=== PATIENT | female | born 1960 | race Two or more races ===

== ENCOUNTER 2017-07-07 09:23 | Day surgery (SDC) | payer OTHER ==
[2017-07-07] VITALS (10 sets, daily range): BP systolic 110–129; BP diastolic 68–77
[~2017-07-07] VITALS: Ht 152.4 cm; Wt 63.0 kg
--- NOTE | 2017-07-07 07:06 | Pre-Procedure Note/Attestation ---
Pre-Procedure Note/Attestation Complete Prior to Procedure Planned Procedure: right Procedure Narrative: rt shoulder scope, rtc repair Indications for Procedure Pre-Operative Diagnosis: rt shoulder rtc tear Attestation I attest that I discussed the nature of the procedure; its benefits; risks and complications; and alternatives (and the risks and benefits of such alternatives ), prior to the procedure, with the patient (or the patient's legal associate financial representative). I attest that, if there was a reasonable possibility of needing a blood transfusion, the patient (or the patient's legal associate financial representative) was given the [facility] standardized written summary, pursuant to the [place] Blood Safety Act ([place] Health and Safety Code # 1645, as amended). I attest that I re-evaluated the patient just prior to the surgery and that there has been no change in the patient's H&P, except as documented below: none DUSTY RICK Jul 07, 2017 07:05
[~2017-07-07 09:23] MED LIST: ceFAZolin 1 GM premix IV ONE; ceFAZolin sod 1gm in NS 55ml IVPB ONE; celeBREX 200mg Cap **SURGERY PATIENTS ONLY ORAL ONE; oxyCONTIN 20mg tab ORAL ONE
[2017-07-07] MEDS ORDERED: Neostigmine 1mg/ml 10ml Inj ONE (09:24)
[2017-07-07] MEDS ORDERED: Midazolam 2mg/2ml Inj ONE (09:24)
[2017-07-07] MEDS ORDERED: Succinylcholine 20mg/ml 10ml vial ONE (09:24)
[2017-07-07] MEDS ORDERED: fentaNYL 100 mcg/2 mL IV ONE (09:24)
[2017-07-07] MEDS ORDERED: LR 1000ml ONE (09:24)
[2017-07-07] MEDS ORDERED: Ketorolac 30mg Inj ONE (09:24)
[2017-07-07] MEDS ORDERED: Zemuron 50mg/5ml Inj IV ONE (09:24)
[2017-07-07] MEDS ORDERED: Glycopyrrolate 0.2mg/ml 1ml Vial ONE (09:24)
[2017-07-07] MEDS ORDERED: Propofol 200mg/20ml IV ONE (09:24)
[2017-07-07] MEDS ORDERED: FLUOXETINE HCL40 MG ORAL (10:04)
[2017-07-07] MEDS ORDERED: GABAPENTIN300 MG ORAL (10:04)
[2017-07-07] MEDS ORDERED: LIPITOR10 MG ORAL (10:04)
[2017-07-07] MEDS ORDERED: LORAZEPAM0.5 MG ORAL (10:04)
[2017-07-07] MEDS ORDERED: Ropivacaine 5mg/ml Vial 30ml INJ ONE (10:09)
[2017-07-07] MEDS ORDERED: celeBREX 200mg Cap **SURGERY PATIENTS ONLY ORAL ONE (10:30)
[2017-07-07] MEDS ORDERED: Tylenol #3 tab (300mg/30mg) ORAL PRN (11:30)
[2017-07-07] MEDS ORDERED: HYDROmorphone 1mg/ml Carpuject SUBQ PRN (11:30)
[2017-07-07] MEDS ORDERED: Norco 5mg/325mg tab ORAL PRN (11:30)
[2017-07-07] MEDS ORDERED: NS Irrig 4000ml IRRIG ONE (12:20)
[2017-07-07] MEDS ORDERED: LR 1000ml 1,000 ML IVLG SCH (13:13)
--- NOTE | 2017-07-07 13:13 | Anethesia Preoperative Eval ---
Anesthesia Pre-op PMH/ROS General Date of Evaluation: Jul 07, 2017 Time of Evaluation: 11:56 Anesthesiologist: Jarret ASA Score: ASA 2 Mallampati Score Class I : Soft palate, uvula, fauces, pillars visible Class II: Soft palate, uvula, fauces visible Class III: Soft palate, base of uvula visible Class IV: Only hard plate visible Mallampati Classification: Class II Surgeon: Jorge Luis Diagnosis: R shoulder pain Surgical Procedure: R shoulder scope Anesthesia History: none Family History: no anesthesia problems Allergies: Coded Allergies: No Known Allergies (Unverified , 07/02/17) Medications: see eMAR Past Medical History Cardiovascular: Denies: HTN, CAD, [place], valve dz, arrhythmia, other Pulmonary: Denies: asthma, COPD, PARVEZ, other Gastrointestinal/Genitourinary: Reports: GERD - mild, Denies: CRI, ESRD, other Neurologic/Psychiatric: Reports: depression/anxiety, Denies: dementia, CVA, TIA, other Endocrine: Denies: DM, hypothyroidism, steroids, other HEENT: Denies: cataract (L), cataract (R), glaucoma, DIOMEDE (L), DIOMEDE (R), other Hematology/Immune: Denies: anemia, DVT, bleeding disorder, other Musculoskeletal/Integumentary: Denies: OA, RA, DJD, DDD, edema, other PMH Narrative: as above PSxH Narrative: R shoulder carpal tunnel, C- section x 4 Anesthesia Pre-op Phys. Exam Physician Exam Last Vital Signs Date Time Temp Pulse Resp B/P (MAP) Pulse Ox O2 Delivery O2 Flow Rate FiO2 07/07/17 10:19 97.8 67 20 111/68 99 Room Air 97.8 Constitutional: NAD Neurologic: CN 2-12 intact Cardiovascular: RRR, no M/R/G Respiratory: CTA Gastrointestinal: S/NT/ND Airway Exam Mallampati Score: Class II MO: full Neck: flexible ROM: full Teeth: intact Dentures: no upper, no lower Anesthesia Pre-op A/P Labs see chart Studies Pre-op Studies: EKG - NSR Risk Assessment & Plan Assessment: ASA 2 Plan: GA with ETT Status Change Before Surgery: No Pre-Antibiotics Drug: Ancef 1gr. Given Within 1 Hr of Incision: Yes Time Given: 12:43 ARTEMIO GUILLERMO M.D. Jul 07, 2017 13:12
[2017-07-07] MEDS ORDERED: DiphenhydrAMINE 50mg/ml Inj IVP PRN (13:15)
[2017-07-07] MEDS ORDERED: Hydromorphone 0.5mg/0.5ml inj IVP PRN (13:15)
[2017-07-07] MEDS ORDERED: Ketorolac 30mg Inj IV PRN (13:15)
[2017-07-07] MEDS ORDERED: Midazolam 2mg/2ml Inj IVP PRN (13:15)
--- NOTE | 2017-07-07 14:03 | Brief Operative Note ---
Immediate Post Operative Note Operative Note Chief Complaint: rt shoulder pain Pre-op Diagnosis: rt shoulder rtc tear Procedure: rt shoulder scope, rtc repair Post-op Diagnosis: same as pre-op Findings: consistent w/pre-op dx studies Surgeon: md rodrigo Electrolytic De Scaler: bayron saldivar Anesthesiologist: md catie Anesthesia: general, regional Specimen: none Complications: none Condition: stable Fluids: ns Estimated Blood Loss: minimal Drains: none Implant(s) used?: Yes - biomet ALEXIA SALDIVAR Jul 07, 2017 14:02
--- NOTE | 2017-07-07 14:23 | 48 Hour Post Anesthesia Eval ---
Post Anesthesia Evaluation Procedure: R shoulder arthroscopy RC repair Date of Evaluation: Jul 07, 2017 Time of Evaluation: 14:22 Blood Pressure Systolic: 116 0: 72 Pulse Rate: 73 Respiratory Rate: 20 Temperature (Fahrenheit): 97.6 O2 Sat by Pulse Oximetry: 99 Airway: patent Nausea: No Vomiting: No Pain Intensity: 2 Hydration Status: adequate Cardiopulmonary Status: stable Mental Status/LOC: patient returned to baseline Follow-up Care/Observations: N/A Post-Anesthesia Complications: none Follow-up care needed: ready to discharge ARTEMIO GUILLERMO M.D. Jul 07, 2017 14:23
--- NOTE | 2017-07-07 14:25 | Immediate Post-Op Evaluation ---
Immediate Post-Op Evalulation Immediate Post-Op Evalulation Procedure: R shoulder arthroscopy RC repair Date of Evaluation: Jul 07, 2017 Time of Evaluation: 14:24 IV Fluids: 1200 Blood Products: none Estimated Blood Loss: 50 Urinary Output: none Blood Pressure Systolic: 116 Blood Pressure Diastolic: 72 Pulse Rate: 76 Respiratory Rate: 20 O2 Sat by Pulse Oximetry: 99 Temperature (Fahrenheit): 97.6 Pain Score (1-10): 2 Nausea: No Vomiting: No Complications none Patient Status: awake, patent, extubated, none Hydration Status: adequate ARTEMIO GUILLERMO M.D. Jul 07, 2017 14:25
[2017-07-07] MEDS ORDERED: D5 1/2NS 1,000 ML IV SCH (18:00)
--- NOTE | 2017-07-07 20:46 | Operative Note - Dictated ---
DATE OF OPERATION: 07/07/2017 PREOPERATIVE DIAGNOSIS: Right shoulder recurrent rotator cuff tear. POSTOPERATIVE DIAGNOSES: 1. Right shoulder recurrent non-retracted rotator cuff tear measuring 1 cm. 2. Right shoulder subacromial impingement. PROCEDURES: 1. Right shoulder arthroscopy and extensive intra-articular shaving. 2. Right shoulder subacromial bursoscopy, bursectomy, subacromial revision, subacromial decompression. 3. Right shoulder revision rotator cuff repair involving anterior leading edge of the rotator cuff with single Biomet 2.9 mm JuggerKnot anchor. 4. Right shoulder revision distal clavicle resection (mini-Zakiya procedure). SURGEON: Wesley Kang M.D. SCHEDULE MAKER: Emilia Young PA-C. Environmental Professional was present during the actual operative portion of the case and was important and essential part of the operation. During the operation, the fundraising assistant held and operated the arthroscopic camera for visualization, assisted by manipulating the arm to help with visualization, and helped with essential parts of the repair process as necessary such as operatg surgical instruments under surgeon supervision, suture management, and wound closures. ANESTHESIOLOGIST: Dr. Meade. ANESTHESIA: LMA anesthesia combined with interscalene block for postoperative pain management. ESTIMATED BLOOD LOSS: Less than 20 mL. COMPLICATIONS: None. SURGICAL INDICATION: The patient is a 56-year-old female who sustained the above injury to her shoulder. The patient was treated non-operative initially, but this did not alleviate the patients symptoms. Therefore, after discussing all non-surgical and surgical options, and discussing all foreseeable risk and benefits of surgery, the patient opted for surgical treatment as described above. PATIENT POSITIONING: The patient was brought to the operating room table and was placed on the operating room table. All pressure points were well padded. General anesthesia was induced and the patient was then placed in the lateral decubitus position. All pressure points were well padded again and an axillary roll was placed. The patient's shoulder was then prepped and draped in the usual sterile fashion. Time-out was performed and the appropriate preoperative antibiotic was given by the anesthesiologist. EXAMINATION OF SHOULDER UNDER ANESTHESIA: The shoulder was examined under anesthesia with all muscles well relaxed. The shoulder was forward flexed, abducted, and was placed through full range of external and internal rotation. The anterior, posterior, and inferior stability of the shoulder was checked. The exam revealed no evidence of adhesive capsulitis and no evidence of instability. PORTAL PLACEMENT: The posterior portal was established 2 cm inferior and 1 cm medial to the edge of the posterior acromion. A 1-cm skin incision was made using an #11 blade and using the blunt obturator, the cannula was gently placed through the capsule. The mid-glenoid portal was established just lateral to the coracoid process under direct visualization. Direction of the cannula was first established using a spinal needle, and subsequently, the cannula was placed through the capsule with a blunt obturator. DIAGNOSTIC ARTHROSCOPY: The biceps tendon was probed and pulled through the joint for visualization. It appeared normal. The biceps anchor was palpated with a probe and was visualized. There was some degenerative superior labral tearing, otherwise within normal limits. The posterior labrum and axillary recess was visualized. This was normal and there was no evidence of loose cartilage or fragments in this area. Glenoid articular surface was visualized and it appeared normal. The articular surface of the rotator cuff was visualized and probed next. There was articular-sided rotator cuff tear that measured approximately 1 cm. This was marked and viewed from the subacromial space and showed to be a full-thickness tear. The humeral head articular surface was then visualized. There was no evidence of articular cartilage damage. Next the anterior labrum, middle glenohumeral ligament, subscapularis tendon, and the anteroinferior glenohumeral ligament were evaluated. These structures were completely normal. At this point, the scope was moved to the mid-glenoid portal and the posterior structures including the posterior labrum, posterior capsule, and posterior cuff were visualized. These structures were completely normal. The subscapularis recess was devoid of any loose bodies and the anterior capsule was well attached to the humeral neck. The middle and anteroinferior glenohumeral ligament was visualized. These structures were completely normal. OPERATIVE DEBRIDEMENTS AND REPAIR: Care was given to all partial-thickness tears and frayed structures in the shoulder joint. The frayed rotator cuff and labrum was debrided using a shaver initially through the anterior portal and subsequently through the posterior portal to complete the debridement. This allowed for smooth debridement of all affected structures and all loose fragments were removed. DIAGNOSTIC BURSOSCOPY AND SUBACROMIAL DECOMPRESSION: The subacromial bursa was entered from the posterior portal. The anterior portal was established under the CA ligament using a switching stick. Subacromial arthroscopy was initiated. There was extensive bursitis and thickened and inflamed bursa tissue present. The CA ligament appeared to be scuffed and frayed. The shaver was placed through the anterior cannula and debridement of the hypertrophic bursa tissue was accomplished. Once visualization was adequate, a lateral portal was established using a blunt trochar in the mid portion of the acromion bone in the anterior-posterior direction and approximately 2 cm lateral to the lateral edge of the acromion. Using combination of shaver and electrocautery, the CA ligament was released from the undersurface of the acromion and a complete bursectomy was accomplished. At this point, a subacromial decompression was performed using a jazlyn initially taking off 5-8 mm of the anterolateral edge of the acromion from the lateral portal and viewing from the posterior portal. Then the lateral border of the undersurface of the acromion was decompressed to the same depth as the anterolateral edge. A posterior trough was then created in the acromion in line with the posterior edge of the clavicle. At this point, the scope was placed in the lateral portal and the subacromial decompression was performed from the posterior portal decompressing the undersurface of the acromion to depth of 5-8 mm. The decompression was performed anterior to the previously marked trough all the way medially to the level of the AC joint. At all times, care was given not to take off too much bone in order to avoid risk of fracture of the acromion. An excellent subacromial decompression was performed in this fashion. At this point, the bursal side of the rotator cuff was examined. All the bursa over the rotator cuff was removed and the rotator cuff was examined with a probe. The arm was placed into external rotation, neutral, and then internal rotation and a nondisplaced rotator cuff tear that was previously repaired. The scope was then placed in the posterior portal and the subacromial decompression was rechecked to assure there was no area of bone spur that would be still impinging onto the rotator cuff. EVALUATION OF DISTAL CLAVICLE AND DISTAL CLAVICLE RESECTION: Care was given to the distal end of the clavicle. Using electrocautery and maciej, the distal end of the bursa and soft tissue around the distal end of the clavicle was debrided and cleaned. Care was given not to inflict excessive trauma to the ligaments of the AC joint. The distal end of the clavicle appeared to have an inferior osteophyte extending down well bellow the level of the acromion at the level of the AC joint. This appeared to be impinging onto the supraspinatus muscle belly and the musculotendinous junction of the rotator cuff. A mini-Zakiya procedure was performed by using a jazlyn to resect the inferior 30% of the distal end of the clavicle. This decompression allowed space for the inferior structures to slide without impingement. This coplaned the inferior edge of the distal clavicle with the inferior edge of the acromion. The scope was placed in the lateral portal and the rotator cuff was visualized. The rotator cuff revealed a non-retracted 1-cm tear at the site of the previous repair. The rotator cuff footprint adjacent to the articular cartilage of the humeral head was identified. This area was debrided initially using maciej and subsequently using jzalyn to provide adequate bleeding bony surface to accept the rotator cuff tendon. Attention was given to repair the rotator cuff with as little tension as possible. At this point, an arthroscopic punch was used to create holes for suture anchor placement at the medial edge of the footprint through separate stab wound incisions and an arthroscopic tap was used to prepare the holes. One Biomet 2.9-mm JuggerKnot anchor double-loaded with two #2 non-absorbable strong sutures was placed in previously prepared holes. Using standard arthroscopic suture-passing instruments, the sutures were passed through the edge of rotator cuff with minimal trauma to the cuff tissue. Care was given to obtain large-enough bites of the rotator cuff for the sutures to hold well. Once the sutures were passed through the cuff, the repair was secured onto the rotator cuff footprint using SMC sliding knots followed by 3 alternating-post half hitches. This allowed tension-free repair of the rotator cuff with excellent stability and watertight closure. The cuff repair security was assured by palpating the repair with a probe. CONDITION AT DISCHARGE FROM OPERATING ROOM: The skin was re-approximated and sterile dressing and sling were applied. All lap counts and instrument counts were correct. The patient tolerated the procedure well without complications and was taken to the recovery room in stable conditions. Wesley Eddie Kang DR: Johny JOB#: [id number] CC:
== END 2017-07-07 16:10 | disposition home or self-care (01) ==
LOC: SUR 09:23
DX: M75.111 Incomplete rotator cuff tear or rupture of right shoulder, not specified as traumatic (principal); M75.41 Impingement syndrome of right shoulder; M75.51 Bursitis of right shoulder; K21.9 Gastro-esophageal reflux disease without esophagitis; F32.9 Major depressive disorder, single episode, unspecified; F41.9 Anxiety disorder, unspecified
CPT/HCPCS: 29824; 29826; 29827; J0330; J1885; J2250; J2405; J2704; J2710; J2795; J3010; J7120; 94003; 94150; C1713